=== PATIENT | male | born 1970 | race African-American/Black ===

== ENCOUNTER 2016-08-19 00:08 | Emergency (ER) | payer OTHER ==
[~2016-08-19] VITALS: Ht 167.6 cm; Wt 80.0 kg
[~2016-08-19 00:08] MED LIST: DICY1TAB26 PO; Z.0.NO CURRENT MEDS
[2016-08-19 00:11] VITALS: BP 168/92; PULSE 104; RESP 16; TEMP 98.1; O2SAT 99
[2016-08-19] MEDS ORDERED: ULTR50TA5 PO (01:00)
[2016-08-19] MEDS ORDERED: CLEO300C2 PO (01:00)
[2016-08-19] MEDS ORDERED: IBUP800T23 PO (01:01)
--- NOTE | 2016-08-19 01:01 | PD ---
HPI . Facial pain and swelling Chief Complaint: Oral / Dental Pain or Problem Time Seen by Provider: 00:48 Travel History International Travel<30 days: No Contact w/Intl Traveler<30days: No Traveled to known affect area: No History of Present Illness HPI Patient presents with a 2 to three-day history of right facial pain and swelling. It has been getting progressively worse. He denies any associated fever. PFSH Past Medical History Medical History: Denies Significant Hx Asthma: Yes Diminished Hearing: No Tetanus Vaccination: > 5 Years Influenza Vaccination: No Past Surgical History Surgical History: No Previous Surgery Social History Alcohol Use: No Tobacco Use: No Substance Use: No Allergies-Medications (Allergen,Severity, Reaction): Coded Allergies: No Known Allergies (Verified , 08/19/16) Reported Meds & Prescriptions Reported Meds & Active Scripts Active No Active Prescriptions or Reported Medications Review of Systems Except as stated in HPI: all other systems reviewed are Neg General / Constitutional: No: Fever, Chills HENT: Positive: Other (facial pain and swelling) Physical Exam Narrative GENERAL: Healthy-appearing man in no acute distress SKIN: Warm and dry. HEAD: Atraumatic. Normocephalic. Visible swelling of the right side of the face. Diffuse edema and erythema of the gums. EYES: Pupils equal and round. ENT: No nasal bleeding or discharge. Mucous membranes pink and moist. NECK: Trachea midline. No cervical lymphadenopathy. Neck supple. CARDIOVASCULAR: Regular rate and rhythm. RESPIRATORY: No accessory muscle use. GASTROINTESTINAL: Abdomen soft, non-tender, nondistended. MUSCULOSKELETAL: No obvious deformities. No edema. NEUROLOGICAL: Awake and alert. No obvious cranial nerve deficits. Motor grossly within normal limits. Normal speech. PSYCHIATRIC: Appropriate mood and affect; insight and judgment normal. Data Data Last Documented VS Vital Signs Date Time Temp Pulse Resp B/P Pulse Ox O2 Delivery O2 Flow Rate FiO2 08/19/16 00:33 88 08/19/16 00:11 98.1 16 168/92 99 MDM Medical Decision Making Medical Screen Exam Complete: Yes Emergency Medical Condition: Yes Differential Diagnosis Differential diagnosis of facial swelling includes but is not limited to dental abscess, cellulitis, angioedema, facial trauma. Narrative Course Patient presents for evaluation and treatment of right-sided facial swelling and pain. He has diffuse gingivitis. Diagnosis Primary Impression: Dental abscess Additional Impression: Gingivitis Med/Other Pt SpecificInfo: Prescription(s) given Scripts Ibuprofen 800 Mg Nrm295 Mg PO Q8H PRN (pain) #30 TAB Ref 0 Prov:Gabriella Romero MD 08/19/16 Tramadol (Ultram)50 Mg Tab50 Mg PO Q4H PRN (PAIN) #12 TAB Ref 0 Prov:Gabriella Romero MD 08/19/16 Clindamycin (Cleocin)300 Mg Azt495 Mg PO Q6H #40 CAP Ref 0 Prov:Gabriella Romero MD 08/19/16 Disposition: 01 DISCHARGE HOME Condition: Stable Gabriella Romero MD Aug 19, 2016 01:01
[2016-08-19] MEDS ORDERED: IBUPROFEN 800 MG TAB PO ONE (01:15)
[2016-08-19] MEDS ORDERED: CLINDAMYCIN 150 MG CAP PO ONE (01:15)
[2016-08-19] MEDS ORDERED: traMADol HCL 50 MG TAB PO ONE (01:15)
== END 2016-08-19 02:15 | disposition home or self-care (01) ==
LOC: NEPC 00:08
DX: K05.10 Chronic gingivitis, plaque induced (principal); K04.7 Periapical abscess without sinus
CPT/HCPCS: 99283

== ENCOUNTER 2017-02-25 20:01 | Emergency (ER) | payer OTHER ==
[~2017-02-25] VITALS: Ht 167.6 cm; Wt 85.0 kg
[~2017-02-25 20:01] MED LIST changes: +CLEO300C2 PO; -DICY1TAB26 PO; +IBUP800T23 PO; +ULTR50TA5 PO; -Z.0.NO CURRENT MEDS
[2017-02-25 20:03] VITALS: BP 166/85; PULSE 88; RESP 16; TEMP 98.5; O2SAT 99
--- NOTE | 2017-02-25 20:50 | PD ---
Physical Exam Time Seen by Provider: 20:50 Narrative 46 y/o male here for eval of dog bite to L ankle. Vital signs reviewed. Seen at triage desk. Awaiting bed placement. Data Data Last Documented VS Vital Signs Date Time Temp Pulse Resp B/P Pulse Ox O2 Delivery O2 Flow Rate FiO2 02/25/17 20:03 98.5 88 16 166/85 99 Room Air [facility] Medical Record Reviewed: Yes Supervised Visit with DENEEN: Edgar Haddad Feb 25, 2017 20:50
--- NOTE | 2017-02-25 21:24 | PD ---
HPI Chief Complaint: Bite or Sting Time Seen by Provider: 21:22 Travel History International Travel<30 days: No Contact w/Intl Traveler<30days: No Traveled to known affect area: No History of Present Illness HPI Patient comes in for evaluation of a dog bite that occurred this morning while at work. 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 Patient reports the stove tender came out clean it with peroxide and put Neosporin on it. Patient states pain over the site of the bite. Patient describes pain as a soreness without radiation. Reports his tetanus shot is not up-to-date. Patient reports the stove tender informed him that the dog's immunizations are up to date however patient is wanting to still be treated for rabies prophylactically. Pain is worse with palpation and certain movement. Denies anything making it better. PFSH Past Medical History Asthma: Yes Diminished Hearing: No Social History Alcohol Use: No Tobacco Use: No Substance Use: No Allergies-Medications (Allergen,Severity, Reaction): Coded Allergies: No Known Allergies (Verified , 02/25/17) Reported Meds & Prescriptions Reported Meds & Active Scripts Active Augmentin (Amoxicillin-Clavulanate) 875-125 Mg Tab 1 Tab PO BID 10 Days Review of Systems Except as stated in HPI: all other systems reviewed are Neg Physical Exam Narrative GENERAL: Well-developed, well nourished, in no acute distress, and non-ill appearing. SKIN: Superficial abrasion noted over area of patient's left Achilles tendon proximally. There is no deep puncture wound noted. Wound appears very superficial. Patient reports tenderness to palpation. There is minimal soft tissue swelling noted. There is no fluctuation, induration, or drainage. There is no crepitus. HEAD: Atraumatic. Normocephalic. EYES: Pupils equal and round. EOMI. No scleral icterus. No injection or drainage. ENT: No nasal bleeding or discharge. Mucous membranes pink and moist. NECK: Trachea midline.Supple. No nuclear rigidity. RESPIRATORY: No accessory muscle use. No respiratory distress. MUSCULOSKELETAL: No obvious deformities. No clubbing. No cyanosis. No edema. Full range of motion. Ankle: Neagative anterior draw and Alegre test. Negative Faviola's sign. No laxity noted with passive inversion and eversion of BL ankles. Negative squeeze test. Pulses equal BL distal to injury. Capillary refill less than 2 seconds distal to injury and equal BL. Sensation equal BL 1st web space. FROM of toes distal to injury and equal BL. NV intact distal to injury and equal BL. Dorsal pulses equal BL. NEUROLOGICAL: Awake and alert. No obvious cranial nerve deficits. Motor grossly within normal limits. Normal speech. PSYCHIATRIC: Appropriate mood and affect; insight and judgment normal. Data Data Last Documented VS Vital Signs Date Time Temp Pulse Resp B/P Pulse Ox O2 Delivery O2 Flow Rate FiO2 02/25/17 20:03 98.5 88 16 166/85 99 Room Air Orders Tetanus/Diphtheria Tox Adult (Tetanus/Di (02/25/17 21:30) Amoxicil-Clavulanate (Augmentin) (02/25/17 21:30) Rabies Vaccine Chick Emb Inj (Rabavert I (02/25/17 21:30) Rabies Immune Globulin Inj (Hyperrab S/D (02/25/17 21:30) MDM Medical Decision Making Medical Screen Exam Complete: Yes Emergency Medical Condition: Yes Differential Diagnosis Dog bite, abrasion, laceration, rabies, other Narrative Course The patient suffered animal bite wound. There is no evidence of deep tissue involvement and/or local tendon involvement. There was no evidence to suggest foreign bodies. Visual and tactile exams were unremarkable. There was no evidence of neurovascular injury as well. Rabies prophylaxis was discussed with the patient and exposure appears low risk, the patient is wanting this anyway. Rabies prophylaxis and treatment plan was discussed with the patient. Human rabies immune globulin (HRIG) and initial Rabies vaccine was begun in the ED. The patient was given signs and symptom warnings for infection, such as increasing pain, pain with movement of involved extremity, redness, swelling, associated heat, pus or fever. The patient was given antibiotics to cover mouth carline and instructions for timely follow up for wound recheck. The patient agreed with plan of care. Animal control was contacted per hospital protocol. The patient was instructed to return on days 3, 7 and 14 post exposure. Patient in no obvious distress upon re-evaluation.Patient was asked if they wanted to speak to my attending, which the patient did not wish to do at this time. Any questions/concerns in reference to patient diagnosis/condition discussed and clarified prior to patient's discharge. Reinforced sheer importance of close follow up here in 3 days for his next vaccination. Instructed patient to return to ED immediately, if symptoms return/worsen. Pt showed understanding of above instructions. Further instructions and recommendations were detailed in discharge paperwork. Pt ambulated without difficulty out of ED at discharge. Diagnosis Primary Impression: Dog bite of ankle Qualified Code: S91.052A - Dog bite of ankle, left, initial encounter Additional Impression: Rabies, need for prophylactic vaccination against Patient Instructions: Animal Bite (ED), General Instructions, Rabies (ED), Rabies Immune Globulin (By injection), Rabies Vaccine (By injection) Additional Instructions: Follow-up on Wednesday for your next rabies vaccine. Take all medication as prescribed. Keep wound dry and clean as possible using soap and water. Use Neosporin to promote healing. Return to the emergency department if symptoms get worse. Med/Other Pt SpecificInfo: Prescription(s) given Scripts Amoxicillin-Clavulanate (Augmentin)875-125 Mg Tab1 Tab PO BID 10 Days Ref 0 Prov:Parminder Mora MD 02/25/17 Disposition: 01 DISCHARGE HOME Condition: Stable Sadiq Lewis Feb 25, 2017 21:24
[2017-02-25] MEDS ORDERED: RABIES VACCINE CHICK EMB INJ 2.5 UNITS/ML SYR IM ONE (21:30)
[2017-02-25] MEDS ORDERED: AMOXICILLIN/CLAVULANATE K 875 MG TAB PO ONE (21:30)
[2017-02-25] MEDS ORDERED: TETANUS/DIPHTHERIA TOXOID ADULT 0.5 ML VIAL IM ONE (21:30)
[2017-02-25] MEDS ORDERED: RABIES IMMUNE GLOBULIN INJ 1,500 UNITS/10 ML VIAL IM ONE (21:30)
[2017-02-25] MEDS ORDERED: AUGM875T3 PO (23:04)
== END 2017-02-25 23:48 | disposition home or self-care (01) ==
LOC: NEPK 20:01
DX: S91.052A Open bite, left ankle, initial encounter (principal); W54.0XXA Bitten by dog, initial encounter; Y93.89 Activity, other specified; Y92.017 Garden or yard in single-family (private) house as the place of occurrence of the external cause; Y99.0 Civilian activity done for income or pay; Z23 Encounter for immunization; Z29.14 Encounter for prophylactic rabies immune globulin
CPT/HCPCS: 90375; 90471; 90472; 90675; 90714; 96372

== ENCOUNTER 2017-02-28 12:21 | Emergency (ER) | payer OTHER ==
[~2017-02-28] VITALS: Ht 167.6 cm; Wt 79.0 kg
[~2017-02-28 12:21] MED LIST changes: +AUGM875T3 PO; -CLEO300C2 PO; -IBUP800T23 PO; -ULTR50TA5 PO
[2017-02-28 12:24] VITALS: BP 147/92; PULSE 82; RESP 20; TEMP 98.3; O2SAT 99
[2017-02-28] MEDS ORDERED: RABIES VACCINE CHICK EMB INJ 2.5 UNITS/ML SYR IM ONE (12:45)
--- NOTE | 2017-02-28 12:50 | PD ---
HPI Chief Complaint: Wound/Suture/Staple Re-Check Time Seen by Provider: 12:30 Travel History International Travel<30 days: No Contact w/Intl Traveler<30days: No Traveled to known affect area: No History of Present Illness HPI 46-year-old male here for his second rabies vaccine. Patient was seen 3 days ago and received rabies series after sustaining a dog bite. He reports that the area of the dog bite has improved since the last visit. He has no complaints of pain or fever. PFSH Past Medical History Asthma: Yes Diminished Hearing: No Social History Alcohol Use: No Tobacco Use: No Substance Use: No Allergies-Medications (Allergen,Severity, Reaction): Coded Allergies: No Known Allergies (Verified , 02/25/17) Reported Meds & Prescriptions Reported Meds & Active Scripts Active Augmentin (Amoxicillin-Clavulanate) 875-125 Mg Tab 1 Tab PO BID 10 Days Review of Systems Except as stated in HPI: all other systems reviewed are Neg General / Constitutional: No: Fever Eyes: No: Visual changes HENT: No: Headaches Cardiovascular: No: Chest Pain or Discomfort Respiratory: No: Shortness of Breath Gastrointestinal: No: Abdominal Pain Genitourinary: No: Dysuria Physical Exam Narrative GENERAL: Well-nourished, well-developed patient. SKIN: Focused skin assessment warm/dry. HEAD: Normocephalic. EYES: No scleral icterus. No injection or drainage. NECK: Supple, trachea midline. No JVD or lymphadenopathy. CARDIOVASCULAR: Regular rate and rhythm without murmurs, gallops, or rubs. RESPIRATORY: Breath sounds equal bilaterally. No accessory muscle use. GASTROINTESTINAL: Abdomen soft, non-tender, nondistended. MUSCULOSKELETAL: No cyanosis, or edema. Left lower extremity: Small healing puncture wound without induration, fluctuance or stranding cellulitis. BACK: Nontender without obvious deformity. No CVA tenderness. Data Data Last Documented VS Vital Signs Date Time Temp Pulse Resp B/P Pulse Ox O2 Delivery O2 Flow Rate FiO2 02/28/17 12:24 98.3 82 20 147/92 99 Room Air Orders Rabies Vaccine Chick Emb Inj (Rabavert I (02/28/17 12:45) MDM Medical Decision Making Medical Screen Exam Complete: Yes Emergency Medical Condition: Yes Differential Diagnosis Wound recheck, rabies vaccine, other Narrative Course 46-year-old male here for his second rabies vaccine. Patient sustained a dog bite 3 days ago. He reports the puncture wound is improving. He has no fever chills. Diagnosis Primary Impression: Rabies, need for prophylactic vaccination against Additional Impressions: Dog bite of ankle Qualified Code: S91.052D - Dog bite of ankle, left, subsequent encounter Encounter for wound re-check Referrals: Primary Care Physician Disposition: 01 DISCHARGE HOME Condition: Stable Montserrat Jansen Feb 28, 2017 12:50
== END 2017-02-28 13:47 | disposition home or self-care (01) ==
LOC: NEPD 12:21
DX: S91.052D Open bite, left ankle, subsequent encounter (principal); W54.0XXD Bitten by dog, subsequent encounter; Z23 Encounter for immunization
CPT/HCPCS: 90471; 90675

== ENCOUNTER 2017-03-02 19:23 | Emergency (ER) | payer OTHER ==
[~2017-03-02] VITALS: Ht 167.6 cm; Wt 79.0 kg
[2017-03-02 19:25] VITALS: BP 129/93; PULSE 86; RESP 16; TEMP 98.6; O2SAT 99
[2017-03-02] MEDS ORDERED: RABIES VACCINE HUMAN DIPL CELL 2.5 UNITS/ML SYRINGE IM ONE (19:45)
--- NOTE | 2017-03-02 19:49 | PD ---
HPI Chief Complaint: Medical Clearance Time Seen by Provider: 19:47 Travel History International Travel<30 days: No Contact w/Intl Traveler<30days: No Traveled to known affect area: No History of Present Illness HPI 46-year-old black male presents to emergency department for his third and a series of for rabies shots. He was bitten one week ago by a pit bull. He states that the pain in his left lower ankle is much improved. Denies any fever or chills. No drainage. PFSH Past Medical History Asthma: Yes Diminished Hearing: No Social History Alcohol Use: No Tobacco Use: No Substance Use: No Allergies-Medications (Allergen,Severity, Reaction): Coded Allergies: No Known Allergies (Verified , 03/02/17) Reported Meds & Prescriptions Reported Meds & Active Scripts Active Augmentin (Amoxicillin-Clavulanate) 875-125 Mg Tab 1 Tab PO BID 10 Days Review of Systems Except as stated in HPI: all other systems reviewed are Neg Physical Exam Narrative GENERAL: This is a well-nourished, well-developed patient, in no apparent distress. SKIN: No rashes, ecchymoses or lesions. Warm and dry. HEAD: Atraumatic. Normocephalic. EYES: PERRL, EOMI, no discharge or injection. No scleral icterus. EARS: Clear NOSE: Nasal turbinates appear normal. THROAT: Mucosa pink and moist. Airway patent. NECK: Trachea midline. supple, moves head freely. LUNGS: Clear to auscultation. CV: Regular in rhythm. ABDOMEN: Soft nontender. EXT: No clubbing cyanosis or edema. Data Data Last Documented VS Vital Signs Date Time Temp Pulse Resp B/P Pulse Ox O2 Delivery O2 Flow Rate FiO2 03/02/17 19:25 98.6 86 16 129/93 99 Room Air Orders Rabies Vaccine Human Cell Inj (Imovax In (03/02/17 19:45) MDM Medical Decision Making Medical Screen Exam Complete: Yes Emergency Medical Condition: Yes Medical Record Reviewed: Yes Differential Diagnosis Differential diagnoses: Dog bite, rabies, cellulitis Narrative Course Patient is given his third rabies immunization Diagnosis Primary Impression: Rabies, need for prophylactic vaccination against Patient Instructions: General Instructions Additional Instructions: Rest. Continue local wound care. Follow-up in the ER and 1 additional week for your last rabies shot. Return to the ER sooner if any problems. Med/Other Pt SpecificInfo: Wound Care Disposition: 01 DISCHARGE HOME Condition: Stable Manoj Azevedo Mar 02, 2017 19:49
== END 2017-03-02 20:35 | disposition home or self-care (01) ==
LOC: NEPK 19:23
DX: T14.8 Other injury of unspecified body region (principal); W54.0XXD Bitten by dog, subsequent encounter; Z23 Encounter for immunization
CPT/HCPCS: 90471; 90675